=== PATIENT | female | born 1970 | race Caucasian/White ===

== ENCOUNTER 2017-04-03 16:44 | Emergency (ER) | payer MEDICAID ==
[2015-07-09 07:29] VITALS: BMI 35.5
[~2017-04-03 16:44] MED LIST: ABILIFY20 MG PO; ADIPEX-P37.5 MG PO; CELEXA40 MG PO; MOBIC7.5 MG PO; PRILOSEC20 MG PO; TRIAMTERENE-HCT1 TA1 PO; TYLENOL #4 W/CO1 TAB PO; XANAX1 MG PO
== END 2017-04-03 20:20 | disposition home or self-care (01) ==
LOC: D.ER 16:44
DX: M54.2 Cervicalgia (principal); V43.52XA Car driver injured in collision with other type car in traffic accident, initial encounter; Y93.89 Activity, other specified; Y92.410 Unspecified street and highway as the place of occurrence of the external cause; F31.89 Other bipolar disorder; I10 Essential (primary) hypertension

== ENCOUNTER → 2017-10-21 09:19 | Outpatient (CLI) | payer MEDICAID ==
[2015-07-09 07:29] VITALS: BMI 35.5
== END | disposition home or self-care (01) ==
LOC: D.MRI 09:19
DX: D49.6 Neoplasm of unspecified behavior of brain (principal)

== ENCOUNTER → 2019-04-27 09:29 | Outpatient (CLI) | payer MEDICAID ==
[2015-07-09 07:29] VITALS: BMI 35.5
[~2019-04-27 09:29] MED LIST changes: +ROBAXIN500 MG PO
== END | disposition home or self-care (01) ==
LOC: D.HCCARDIO 09:29
PROVIDERS: ATTEND Internal Medicine Cardiovascular Disease
DX: I20.9 Angina pectoris, unspecified (principal)

== ENCOUNTER 2019-04-30 10:17 | Observation (INO) | payer MEDICAID ==
[~2019-04-30] VITALS: Ht 157.5 cm; Wt 82.0 kg
--- NOTE | ~2019-04-30 | HEMODYNAMI ---
PATIENT:EDD SLOAN MEDICAL RECORD: [id number] : 74 LOCATION:[place] [address] ADMISSION DATE: 04/30/19 Generatedon:05/02/20199:26 Patient name: EDD SLOAN Patient #: [id number] SSN: : 1970 Date of study: 05/02/2019 Page: Of Hemodynamic Procedure Report Patient Data Patient Demographics Procedure consent was obtained First Name: EDD Gender: Female Last Name: NATHALIA : 1970 Middle Initial: M Age: 49 year(s) Patient #: [id number] Race: Unknown Additional ID: [id number] Contact details Address: [address] [place] [address] State: [place] City: [place] Zip code: [address] Past Medical History Allergies Allergen Reaction Date Comments Reported Other allergy 05/02/2019 SULFA, CLINDAMYCIN Admission Admission Data Admission Date: 04/30/2019 Admission Time: 12:30 Room #: [facility] Height (in.): 62 BSA: 1.83 (m2) Height (cm.): 157.48 BMI: 33.06 (kg/m2) Weight (lbs.): 180.78 Weight (kg.): 82 Lab Results Lab Result Date: 05/02/2019 Lab Result Time: 0:00 Biochemistry Name Units Result Min Max BUN mg/dl 14 --(--*-)-- 7 18 Creatinine mg/dl 0.6 --(*---)-- 0.6 1.3 eGFR ml/min 90 --(*---)-- 90 120 NONAFRICAN CBC Name Units Result Min Max Hematocrit % 37 *-(----)-- 42 54 Hemoglobin g/dl 12.6 -*(----)-- 13.5 17.5 Procedure Procedure Types Cath Procedure Diagnostic Procedure LHC [facility] w/Coronaries Sedation Charges Moderate Sedation up to 15 minutes Procedure Description Procedure Date Procedure Date: 05/02/2019 Procedure Start Time: 9:03 Procedure End Time: 9:24 Procedure Staff Name Function Chevy Ordonez MD Performing Physician Julianna Gómez RT Monitor Cecelia Heladio RT Scrub Bonnie Martínez RN Nurse Procedure Data Cath Procedure Fluoroscopy Diagnostic fluoroscopy Total fluoroscopy Time: 1.4 time: 1.4 min min Diagnostic fluoroscopy Total fluoroscopy dose: 346 dose: 346 mGy mGy Contrast Material Contrast Material Type Amount (ml) Isovue 300 62 Entry Location Entry Primary Successful Side Size Upsize Upsize Entry Closure Succes sful Closure Location (Fr) 1 (Fr) 2 (Fr) Remarks Device Remarks Femoral Right 5 Fr Exoseal artery Estimated blood loss: 5 ml Procedure Complications No complications Procedure Medications Medication Administration Route Dosage 0.9% NaCl I.V. 100 ml/hr Oxygen etCO2 Nasal cannula 2 l/min Lidocaine 2% added to field 20 Heparin Flush Bag added to field 2 bags (1000units/500ml NS) Radial Cocktail added to field 1 syringe (Verapamil 2mg/Nitro 400mcg/Heparin 1500units) Versed I.V. 2 mg Fentanyl I.V. 100 mcg Versed I.V. 2 mg Hemodynamics Rest BSA: 1.83 (m2) O2 Consumption: Estimated: 175.99 (ml/min) O2 Consumption indexed : Estimated:96.17 (ml/min/m) Heart Rate: 63 (bpm) Pressure Samples Time Site Value (mmHg) Purpose Heart Use Rate(bpm) 9:18 LV 101/3,22 Snapshot 70 9:19 AO 95/55(75) Pullback 71 9:19 LV 106/4,25 Pullback 71 Gradients Valve Time Site 1 Site 2 Mean SEP/DFP Peak To Heart Use (mmHg) (sec/min) Peak Rate (mmHg) (bpm) Aortic 9:19 LV AO 10 21 11 71 106/4,25 95/55(75) Calculations Valve P-P Mean Valve Index Valve Source Name Gradient Area Flow (cm2) Aortic 11 10 11 10 Snapshots Pre Cath Intra NCS Post Cath Vital Signs Time Heart Resp SPO2 etCO2 NIBP (mmHg) Rhythm Pain Sedation Rate (ipm) (%) (mmHg) Status Level (bpm) 8:54:10 66 22 100 44 145/94(110) NSR 0 (11) 10(A) , No pain 8:58:26 64 17 100 44 129/82(103) NSR 0 (11) 10(A) , No pain 9:02:44 65 14 99 16.5 97/63(83) NSR 0 (11) 10(A) , No pain 9:06:56 62 12 97 22.5 109/65(92) NSR 0 (11) 10(A) , No pain 9:11:08 66 13 99 42.1 124/78(88) NSR 0 (11) 9(A) , No pain 9:15:21 67 15 99 33 119/68(94) NSR 0 (11) 9(A) , No pain 9:19:36 69 12 100 16.5 116/65(90) NSR 0 (11) 10(A) , No pain 9:23:45 65 14 100 30.8 105/70(92) NSR 0 (11) 10(A) , No pain Medications Time Medication Route Dose Verified Delivered Reason Notes Ef fectiveness by by 8:53:14 0.9% NaCl I.V. 100 Chevy Bonnie used for ml/hr José Luis Martínez manager technical sales 8:53:21 Oxygen etCO2 2 l/min Chevy Bonnie used for Nasal José Luis Martínez procedure cannula RN 8:53:26 Lidocaine 2% added 20ml Chevy Chevy for local to vial José Luis Ordonez MD anesthetic field 8:53:31 Heparin Flush added 2 bags Chevy Chevy used for Bag to José Luis Ordonez MD procedure (1000units/500ml field NS) 8:53:35 Radial Cocktail added 1 Chevy Chevy used for (Verapamil to syringe José Luis Ordonez MD procedure 2mg/Nitro field 400mcg/Heparin 1500units) 9:01:05 Versed I.V. 2 mg Chevy Bonnie for José Luis Martínez sedation RN 9:01:13 Fentanyl I.V. 100 mcg Chevy Bonnie for José Luis Martínez sedation RN 9:06:39 Versed I.V. 2 mg Chevy Bonnie for José Luis Martínez sedation skidder driver Log Time Note 8:29:09 Signed procedure consent form obtained from patient. 8:29:12 Procedure Status Urgent Heart Cath (IP). 8:29:14 Time tracking: Regular hours (M-F 7:00 - 5:00) 8:29:18 Plan of Care:Hemodynamics will remain stable., Cardiac rhythm will remain stable., Comfort level will be maintained., Respiratory function will remain adequate., Patient/ family verbilizes understanding of procedure., Procedure tolerated without complication., Recovers from procedure without complications.. 8:31:07 Patient allergic to Other allergySULFA, CLINDAMYCIN 8::36 Lab Result : BUN 14 mg/dl 8::36 Lab Result : Creatinine 0.6 mg/dl 8::36 Lab Result : eGFR NONAFRICAN 90 ml/min 8::36 Lab Result : Hematocrit 37 % 8::36 Lab Result : Hemoglobin 12.6 g/dl 8:32:16 Patient Weight : 180.78 lbs 8:32:18 Patient Height : 62 inches 8:40:06 Bonnie Martínez RN sent for patient. Start room use. 8:53:05 Vital chart was started 8:53:14 0.9% NaCl 100 ml/hr I.V. was administered by Bonnie Martínez RN; used for procedure; 8:53:21 Oxygen 2 l/min etCO2 Nasal cannula was administered by Bonnie Martínez RN; used for procedure; 8:53:26 Lidocaine 2% 20ml vial added to field was administered by Chevy Ordonez MD; for local anesthetic; 8:53:31 Heparin Flush Bag (1000units/500ml NS) 2 bags added to field was administered by Chevy Ordonez MD; used for procedure; 8:53:35 Radial Cocktail (Verapamil 2mg/Nitro 400mcg/Heparin 1500units) 1 syringe added to field was administered by Chevy Ordonez MD; used for procedure; 8:58:56 Patient received from Med II to CCL 1 Alert and oriented. Tansferred to table in Supine position. 8:58:57 Warm blankets applied, and inna hugger turned on for patient comfort. 8:58:58 Correct patient and procedure confirmed by team. 8:58:58 ECG and BP/O2 sat monitors applied to patient. 8:58:59 Baseline sample Acquired. 8:59:03 Rhythm: sinus rhythm 8:59:05 Full Disclosure recording started 8:59:10 H&P Date Dictated: 05/02/2019 New H&P dictated by physician.. 8:59:12 Pre-procedure instructions explained to patient. 8:59:12 Pre-op teaching completed and patient verbalized understanding. 8:59:14 Family in patients room. 8:59:15 Patient NPO since Midnight. 8:59:19 Is the patient allergic to Iodine/contrast media? No. 8:59:22 Was the patient premedicated? No 8:59:25 Is patient on blood thinner?No 8:59:27 Patient diabetic? No. 8:59:29 Previous problem with sedation/anesthesia? No ? 8:59:31 Snore? Yes 8:59:32 Sleep apnea? No 8:59:33 Deviated septum? No 8:59:34 Opens mouth fully? Yes 8:59:35 Sticks out tongue? Yes 8:59:47 Airway obstruction? Yes ASTHMA 8:59:51 Dentures? No ? 8:59:57 Pre procedure: right dorsailis pedis pulse 1+ Palpable, but thready & weak; easily obliterated 8:59:59 Pre procedure: left dorsailis pedis pulse 1+ Palpable, but thready & weak; easily obliterated 9:00:06 Patient pain scale 0/10 ?. 9:00:18 IV patent on arrival in left forearm with 0.9% NaCl at [facility]. 9:00:22 Lab results completed and on chart. 9:00:26 Right Radial & Right Groin area was prepped with chlora-prep and draped in sterile fashion 9:00:27 Alarms reviewed by R. N. 9:00:28 Sharps counted by scrub and verified by R.N. 9:00:29 Physician arrived 9:00:29 --------ALL STOP TIME OUT------ 9:00:32 Right Radial & Right Groin site verified by team. 9:00:36 Fire Safety Assessment: A--An alcohol-based skin anteseptic being used preoperatively., C--Open oxygen or nitrous oxide is being used., D--An ESU, laser, or fiber-optic light is being used. 9:00:41 Physical assessment completed. ASA score P 2 - A patient with mild systemic disease as per Chevy Ordonez MD. 9:00:43 1) 90+ Normal kidney functon but urine findings or structural abnormalities or genetic trait point to kidney disease. 9:00:47 Maximum allowable contrast dose (3.7 X eGFR X 0.75)249 ml. 9:00:51 Sedation plan: IV Moderate Sedation Medication:Versed, Fentanyl 9:00:55 Use device set Radial Dx or PCI 9:00:56 ACIST Syringe (79178) opened to sterile field. 9:00:57 Medline Cath Pack ([id number]) opened to sterile field. 9:00:57 Bag Decanter (2002S) opened to sterile field. 9:00:58 ACIST Hand Control (92857) opened to sterile field. 9:00:58 ACIST Manifold (60070) opened to sterile field. 9:00:59 Tegaderm 4 x 4 (1626W) opened to sterile field. 9:01:05 Versed 2 mg I.V. was administered by Bonnie Martínez RN; for sedation; 9:01:05 EMERALD Guide Wire (170-253) opened to sterile field. 9:01:08 MBrace Wrist Support ([id number]) opened to sterile field. 9:01:13 Fentanyl 100 mcg I.V. was administered by Bonnie Martínez RN; for sedation; 9:02:08 Procedure started. 9:03:49 Local anesthetic to right radial artery with Lidocaine 2% by Chevy Ordonez MD.INITIAL ACCESS ONLY 9:06:39 Versed 2 mg I.V. was administered by Bonnie Martínez RN; for sedation; 9:10:46 unable to gain radial access 9:10:52 Local anesthetic to right femoral artery with Lidocaine 2% by Chevy Ordonez MD.ADDITIONAL ACCESS 9:11:01 SHEATH 5FR Whitetop (KZW325) opened to sterile field. 9:13:34 A 5 Fr sheath was inserted into the Right Femoral artery 9:13:46 Zero performed for pressure channel P1 9:14:07 DIAGNOSTIC Multipack 5Fr catheter set ([id number]) opened to sterile field. 9:14:16 5 Fr jl 4 guide catheter was inserted over the wire 9:15:16 LCA angiography performed. 9:15:23 Injector settings: Ml/sec: 3, Volume: 6, 9:15:57 Catheter removed. 9:16:14 5 Fr 3drc guide catheter was inserted over the wire 9:17:23 RCA angiography performed. 9:17:27 Injector settings: Ml/sec: 3, Volume: 6, 9:17:55 Catheter removed. 9:18:05 5 Fr pigtail guide catheter was inserted over the wire 9:19:06 LV hemodynamics recorded. 9:19:07 LV gram done using FLORES 9:19:10 Injector settings: Ml/sec: 5, Volume: 15, 9:19:33 EF : 60 % 9:19:50 Aortic Root visualized 9:19:54 Catheter removed. 9:20:00 ACCDominant side:Co-Dominant 9:20:07 EXOSEAL 5Fr (EX500) opened to sterile field. 9:20:19 Sheath removed intact; hemostasis achieved with Exoseal to the Right Femoral artery. 9:20:21 Procedure ended.(Physican Out) 9:20:59 Fluoroscopy time 01.40 minutes. 9:21:04 Flurop Dose total: 346 9:21:04 Fluoroscopy dose: 346 mGy 9:21:12 Dose Area Product 47263 mGy/cm. 9:21:17 Contrast amount:Isovue 300 62ml. 9:21:20 Sharps counted by scrub and verified by R.N. 9:21:49 Insertion/operative site no bleeding no hematoma. 9:21:52 Post-op/insertion site Right Femoral artery dressed using a 4 x 4 and Tegaderm. 9:21:54 Post Procedure Pulses reassessed and unchanged 9:21:58 Post procedure rhythm: unchanged. 9:22:01 Estimated blood loss: 5 ml 9:22:03 Post procedure instruction explained to patient.Patient verbalizes understanding. 9:22:03 Patient needs reinforcement of post procedure teaching. 9:24:04 Procedure type changed to Cath procedure, Diagnostic procedure, LHC, LHC w/Coronaries, Sedation Charges, Moderate Sedation up to 15 minutes 9:24:06 Procedure and supply charges have been captured, reviewed, submitted and are correct. 9:24:10 Procedure Complication : No complications 9:24:13 Vital chart was stopped 9:24:13 See physician's report for complete and final results. 9:24:18 Report given to [facility]. 9:24:21 Patient transfered to [facility] with Stretcher. 9:24:23 Procedure ended. 9:24:23 Full Disclosure recording stopped 9:24:35 End room use (Document Last) Device Usage Item Name Manufacture Quantity Catalog Hospital Part Current Minimal Lot# / Number Charge Number Stock Stock Serial# Code ACIST Acist 1 88126 773294 313608 149991 20 Syringe Medical (67792) Systems Inc Medline Medline 1 [id number] 417766 59779 509018 5 Cath Pack ([id number]) Bag Microtek 1 2001S 606779 40596 919536 5 Decanter Medical Inc. () ACIST Hand Acist 1 72185 377030 756127 537460 5 Control Medical (88858) Systems Inc ACIST Acist 1 51122 880685 363933 371540 5 Manifold Medical (27951) Systems Inc Tegaderm 4 3M 1 1626W 237881 107309 579723 5 x 4 (1626W) EMERALD Cardinal 1 480-770 875781 346748 483815 5 Guide Wire Health (117-253) race Advanced 1 140-0250-00 025417 46044 314179 5 Wrist Vascular Support Dynamics ([id number]) SHEATH 5FR Terumo 1 RFA424 144028 660842 208134 5 Whitetop (YDC286) DIAGNOSTIC Cardinal 1 DZ7067 573485 01106 916330 30 37coins 5Fr catheter set (GX6732) EXOSEAL 5Fr Cardinal 1 EX500 997986 953456 843688 10 (EX500) Health Signature Audit [place] Stage Time Signature Unsigned Intra-Procedure 05/02/2019 Julianna Gómez 9:26:13 AM RT(R) Signatures Performing Physician : Signature : Chevy Ordonez MD Date : Time : Monitor : Julianna Gómez RT Signature : Date : Time : Nurse : Bonnie Martínez RN Signature : Date : Time : [place] [address] [place] [address]
[~2019-04-30 10:17] MED LIST changes: -ROBAXIN500 MG PO
[2019-04-30] MEDS ORDERED: ROBAXIN500 MG PO (10:29)
[2019-04-30 10:46] LABS: BASOPHILS 0.1 % (0-2); EOSINOPHILS 4.2 % (0-7); HEMATOCRIT 39.8 % (36.0-48.0); LYMPHOCYTES 26.8 % (15-50); MCH 33.3 pg (26.0-34.0); MCHC 35.2 g/dL (31.0-37.0); MCV 94.8 fL (80.0-100.0); MEAN PLATELET VOLUME 11.3 fL (7.4-10.4); MONOCYTES 4.1 % (2-11); NEUTROPHILS 64.8 % (40-80); PLATELET COUNT 244 10x3/uL (130-400); RDW 12.6 % (11.5-14.5); WBC 7.6 10x3/uL (4.8-10.8)
[2019-04-30 11:02] LABS: ALBUMIN 3.7 g/dL (3.4-5.0); ALKALINE PHOSPHATASE 60 U/L (46-116); ALT (SGPT) 21 U/L (10-68); BILIRUBIN - TOTAL 0.46 mg/dL (0.2-1.3); CALC OSMOLALITY 280 mosm/kg (275-300); CALCIUM 9.1 mg/dL (8.5-10.1); CARBON DIOXIDE 26.3 mmol/L (21.0-32.0); CHLORIDE - SERUM 106 mmol/L (98-107); CREATININE - SERUM 0.8 mg/dL (0.6-1.3); GLUCOSE 92 mg/dL (74-106); POTASSIUM - SERUM 3.6 mmol/L (3.5-5.1); SODIUM 141 mmol/L (136-145); UREA NITROGEN 13 mg/dL (7-18); eGFR NON AFRICAN AMERICAN 81 mL/min (90-120)
[2019-04-30 11:09] LABS: LIPASE 57 U/L (73-393); PRO BNP 58 pg/mL (0-125)
[2019-04-30 11:10] LABS: TROPONIN-I < 0.017 ng/mL (0.000-0.060)
[2019-04-30 11:30] VITALS: BP 110/62
--- NOTE | 2019-04-30 11:35 | NUR ---
DR. DUMONT IN TO SEE PT.
[2019-04-30 12:14] VITALS: BP 109/49
--- NOTE | 2019-04-30 12:18 | NUR ---
ATTEMPT TO CALL REPORT, INFORMED ROOM IS DIRTY
--- NOTE | 2019-04-30 13:05 | NUR ---
ATTEMPTING TO CALL REPORT,
--- NOTE | 2019-04-30 13:30 | NUR ---
TRANSFERED FROM ER BY W/Stef ONEIL TO ROOM. CALL LIGHT IN REACH. WILL CONT. PLAN OF CARE.
[2019-04-30 13:33] VITALS: BP 114/65; BMI 33.0
[2019-04-30 14:29] VITALS: Ht 157.5 cm; Wt 82.0 kg
--- NOTE | 2019-04-30 16:21 | NUR ---
MESSAGE LEFT TO DR. TRACY, ELEVATED D-DIMER.
[2019-04-30 16:27] LABS: CKMB 0.3 U/L (0.0-3.6); CREATINE KINASE 55 UL (21-215)
[2019-04-30 16:28] LABS: TROPONIN-I < 0.017 ng/mL (0.000-0.060)
[2019-04-30 17:47] VITALS: BP 99/62
[2019-04-30 19:03] LABS: APPEARANCE CLEAR (CLEAR); BILIRUBIN NEGATIVE (NEGATIVE); COLOR YELLOW (YELLOW); GLUCOSE NEGATIVE (NEGATIVE); KETONE NEGATIVE (NEGATIVE); NITRITE NEGATIVE (NEGATIVE); PROTEIN NEGATIVE (NEGATIVE); UROBILINOGEN NORMAL (NORMAL)
[2019-04-30 19:22] LABS: UDS - AMPHET NEGATIVE QUAL (NEGATIVE); UDS - BARB NEGATIVE QUAL (NEGATIVE); UDS - BENZO NEGATIVE QUAL (NEGATIVE); UDS - COCAINE NEGATIVE QUAL (NEGATIVE); UDS - OPIATE POSITIVE QUAL (NEGATIVE); UDS - PCP NEGATIVE QUAL (NEGATIVE); UDS - THC NEGATIVE QUAL (NEGATIVE)
--- NOTE | 2019-04-30 19:50 | NUR ---
BEDSIDE REPORT RECIEVED. PT RESTING IN BED WITH NONLABORED RESPIRATIONS. AT BEDSIDE. CALL LIGHT IN REACH. CPOC.
[2019-04-30 20:00] VITALS: BP 114/56
--- NOTE | 2019-04-30 20:00 | NUR ---
ASSESSMENT COMPLETED. PT C/O DULL HEADACHE. WILL HOLD NEXT SCHEDULED NITRO PASTE AND PROVIDE PAIN MEDICATION. CPOC.
--- NOTE | 2019-04-30 20:32 | NUR ---
IV DILAUDID GIVEN FOR PAIN/HEADACHE.
[2019-04-30 22:24] LABS: CKMB 0.5 U/L (0.0-3.6); CREATINE KINASE 53 UL (21-215); TROPONIN-I 0.022 ng/mL (0.000-0.060)
[2019-05-01] VITALS: BP 125/66
[2019-05-01 02:13] LABS: BASOPHILS 0.1 % (0-2); EOSINOPHILS 7.9 % (0-7); HEMOGLOBIN 13.1 g/dL (12-16); IMMATURE GRANULOCYTES 0.1 % (0-5); LYMPHOCYTES 38.3 % (15-50); MCH 32.8 pg (26.0-34.0); MCHC 34.5 g/dL (31.0-37.0); MCV 95.2 fL (80.0-100.0); MONOCYTES 5.3 % (2-11); NEUTROPHILS 48.3 % (40-80); PLATELET COUNT 235 10x3/uL (130-400); RBC 3.99 10x6/uL (4.00-5.40); RDW 12.7 % (11.5-14.5); WBC 7.6 10x3/uL (4.8-10.8)
[2019-05-01 02:37] LABS: CALC OSMOLALITY 287 mosm/kg (275-300); CALCIUM 8.5 mg/dL (8.5-10.1); CARBON DIOXIDE 30.2 mmol/L (21.0-32.0); CHLORIDE - SERUM 106 mmol/L (98-107); CKMB 0.5 U/L (0.0-3.6); CREATINE KINASE 50 UL (21-215); CREATININE - SERUM 0.7 mg/dL (0.6-1.3); GLUCOSE 103 mg/dL (74-106); POTASSIUM - SERUM 3.7 mmol/L (3.5-5.1); SODIUM 144 mmol/L (136-145); UREA NITROGEN 16 mg/dL (7-18); eGFR NON AFRICAN AMERICAN > 90 mL/min (90-120)
[2019-05-01 04:00] VITALS: BP 106/62
[2019-05-01 08:00] VITALS: BP 103/63
[2019-05-01 08:59] LABS: CALC OSMOLALITY 288 mosm/kg (275-300); CARBON DIOXIDE 30.5 mmol/L (21.0-32.0); CHLORIDE - SERUM 105 mmol/L (98-107); CREATININE - SERUM 0.7 mg/dL (0.6-1.3); GLUCOSE 122 mg/dL (74-106); POTASSIUM - SERUM 3.5 mmol/L (3.5-5.1); SODIUM 144 mmol/L (136-145); UREA NITROGEN 14 mg/dL (7-18); eGFR NON AFRICAN AMERICAN > 90 mL/min (90-120)
[2019-05-01 12:30] VITALS: BP 106/61
[2019-05-01 16:30] VITALS: BP 111/61
[2019-05-01 20:00] VITALS: BP 106/67
--- NOTE | 2019-05-01 20:00 | NUR ---
INITIAL ROUNDS AND ASSESSMENT COMPLETED. PT RESTING IN BED. CALL LIGHT IN REACH. CPOC.
[2019-05-02 00:18] VITALS: BP 92/58
--- NOTE | 2019-05-02 04:30 | NUR ---
C/O CHEST PAIN, MEDICATED WITH DILAUDID 1MG SIVP FOR PAIN 04/09. PT NPO FOR AM HEART CATH.
[2019-05-02 05:35] LABS: BASOPHILS 0.3 % (0-2); EOSINOPHILS 6.9 % (0-7); HEMOGLOBIN 12.6 g/dL (12-16); IMMATURE GRANULOCYTES 0.1 % (0-5); LYMPHOCYTES 31.5 % (15-50); MCH 32.6 pg (26.0-34.0); MCHC 34.1 g/dL (31.0-37.0); MCV 95.6 fL (80.0-100.0); MEAN PLATELET VOLUME 11.5 fL (7.4-10.4); NEUTROPHILS 57.2 % (40-80); PLATELET COUNT 238 10x3/uL (130-400); RBC 3.87 10x6/uL (4.00-5.40); RDW 12.7 % (11.5-14.5); WBC 7.9 10x3/uL (4.8-10.8)
[2019-05-02 05:57] LABS: CALC OSMOLALITY 280 mosm/kg (275-300); CALCIUM 8.6 mg/dL (8.5-10.1); CARBON DIOXIDE 28.5 mmol/L (21.0-32.0); CHLORIDE - SERUM 105 mmol/L (98-107); CREATININE - SERUM 0.6 mg/dL (0.6-1.3); GLUCOSE 88 mg/dL (74-106); SODIUM 141 mmol/L (136-145); UREA NITROGEN 14 mg/dL (7-18); eGFR NON AFRICAN AMERICAN > 90 mL/min (90-120)
[2019-05-02 06:25] VITALS: BP 117/65
--- NOTE | 2019-05-02 08:04 | NUR ---
ASSESSMENT DONE. DENIES NEEDS
[2019-05-02 08:43] VITALS: BP 103/56
[2019-05-02 13:28] VITALS: BP 101/47
--- NOTE | 2019-05-02 17:02 | NUR ---
WITHOUT CHANGES OR DISTRESS NOTED AT THIS TIME. DENIES NEEDS
[2019-05-02 17:15] VITALS: BP 100/52
--- NOTE | 2019-05-02 17:19 | NUR ---
I have reviewed this patient and I concur with the Shift Assessment completed by the Licensed Practical Nurse today this shift.
--- NOTE | 2019-05-02 19:23 | NUR ---
BEDSIDE REPORT RECEIVED. PATIENT IS ALERT AND ORIENTED RESTING COMFORTABLY IN BED. RESPIRATIONS ARE EVEN AND UNLABORED. NO S/S OF DISTRESS. NO C/O PAIN. PATIENT REFUSING TO WEAR WAFER MOUNTER. PATIENT EDUCATED TO THE IMPORTANCE OF HER WEARING THE MONITOR. PATIENT CONTINUES TO REFUSE. NEEDS MET. CALL LIGHT WITHIN REACH. WILL CPOC.
[2019-05-02 20:00] VITALS: BP 99/52
[2019-05-03 00:01] VITALS: BP 96/50
[2019-05-03 04:00] VITALS: BP 91/53
[2019-05-03 06:41] LABS: CALC OSMOLALITY 293 mosm/kg (275-300); CALCIUM 8.7 mg/dL (8.5-10.1); CHLORIDE - SERUM 109 mmol/L (98-107); CREATININE - SERUM 0.7 mg/dL (0.6-1.3); GLUCOSE 102 mg/dL (74-106); POTASSIUM - SERUM 3.7 mmol/L (3.5-5.1); SODIUM 147 mmol/L (136-145); UREA NITROGEN 17 mg/dL (7-18); eGFR NON AFRICAN AMERICAN > 90 mL/min (90-120)
[2019-05-03 06:53] LABS: BASOPHILS 0.2 % (0-2); EOSINOPHILS 8.2 % (0-7); HEMATOCRIT 35.2 % (36.0-48.0); HEMOGLOBIN 11.8 g/dL (12-16); IMMATURE GRANULOCYTES 0.2 % (0-5); LYMPHOCYTES 31.5 % (15-50); MCH 32.4 pg (26.0-34.0); MCHC 33.5 g/dL (31.0-37.0); MCV 96.7 fL (80.0-100.0); MEAN PLATELET VOLUME 11.4 fL (7.4-10.4); MONOCYTES 5.1 % (2-11); NEUTROPHILS 54.8 % (40-80); PLATELET COUNT 198 10x3/uL (130-400); RBC 3.64 10x6/uL (4.00-5.40); RDW 12.8 % (11.5-14.5); WBC 6.5 10x3/uL (4.8-10.8)
--- NOTE | 2019-05-03 07:10 | NUR ---
ASSESSMENT DONE. ADEN NEEDS
[2019-05-03 08:00] VITALS: BP 118/75
[2019-05-03 12:00] VITALS: BP 103/56
[2019-05-03 15:04] VITALS: BP 111/53
--- NOTE | 2019-05-03 17:19 | NUR ---
DC GIVEN TO PT
--- NOTE | 2019-05-03 17:41 | NUR ---
DC GIVEN TO PT. DC HOME PER PERSONAL CAR
--- NOTE | 2019-05-04 07:47 | MORECARE ---
CASE MANAGEMENT DISCHARGE SUMMARY PATIENT: EDD SLOAN UNIT: [id number] ADM DATE: 04/30/19 AGE: 49 : 74 SEX: F ROOM/BED: D.1634 AUTHOR: BRISSA MARIO PHYSICIAN: REFERRING PHYSICIAN: SHAWN TRACY MD DATE OF SERVICE: 05/04/19 Discharge Plan Patient Name: EDD SLOAN Facility: [facility]:[place] : 1970 Planned Disposition: Home Anticipated Discharge Date: 05/03/19 Discharge Date: 05/03/2019 Expected LOS: 3 Initial Reviewer: [email or web address] Initial Review Date: 05/04/2019 Generated: 05/04/19 8:47 am Patient Name: EDD SLOAN Page 51466 at 0747 All edits/amendments must be made on the electronic document DICTATION DATE: 05/04/1945 DUCK OPERATOR: GINA 05/04/19 0747 RPT#: [id number] DC DATE:05/03/19 STATUS: DIS IN [facility] [address] [place] [address] END OF REPORT
== END 2019-05-03 17:42 | disposition home or self-care (01) ==
LOC: D.ER 10:17 → OBSVTIME 12:30 → D.M2 12:30
PROVIDERS: Family Medicine; Internal Medicine Cardiovascular Disease; ADMIT Internal Medicine Nephrology; ATTEND Internal Medicine Nephrology
DX: I25.110 Atherosclerotic heart disease of native coronary artery with unstable angina pectoris (principal); J45.909 Unspecified asthma, uncomplicated; F17.203 Nicotine dependence unspecified, with withdrawal; G89.29 Other chronic pain

== ENCOUNTER 2019-09-08 09:56 | Emergency (ER) | payer MEDICAID ==
[~2019-09-08] VITALS: Ht 160 cm; Wt 82.3 kg
[~2019-09-08 09:56] MED LIST changes: +ROBAXIN500 MG PO
[2019-09-08 10:07] VITALS: Ht 160 cm; Wt 82.3 kg
[2019-09-08 14:25] VITALS: BP 129/80
== END 2019-09-08 14:25 | disposition home or self-care (01) ==
LOC: D.ER 09:56
DX: T78.1XXA Other adverse food reactions, not elsewhere classified, initial encounter (principal); J45.909 Unspecified asthma, uncomplicated; Z72.0 Tobacco use

== ENCOUNTER → 2020-05-01 09:07 | Outpatient (CLI) | payer MEDICAID ==
[2019-09-08 10:07] VITALS: BMI 32.1
[2020-05-01 11:14] LABS: ALBUMIN 3.6 g/dL (3.4-5.0); BILIRUBIN - INDIRECT 0.15 mg/dL (0.00-1.00); BILIRUBIN - TOTAL 0.19 mg/dL (0.2-1.3); PROTEIN - SERUM 7.2 g/dL (6.4-8.2)
[2020-05-01 11:15] LABS: BILIRUBIN - DIRECT 0.04 mg/dL (0.00-0.30)
== END | disposition home or self-care (01) ==
LOC: D.US 09:00
PROVIDERS: ATTEND Internal Medicine Gastroenterology
DX: K76.0 Fatty (change of) liver, not elsewhere classified (principal)

== ENCOUNTER → 2020-10-31 10:14 | Outpatient (CLI) | payer MEDICAID ==
[2019-09-08 10:07] VITALS: BMI 32.1
[2020-10-31 11:03] LABS: ALBUMIN 3.6 g/dL (3.4-5.0); BILIRUBIN - DIRECT 0.06 mg/dL (0.00-0.30); BILIRUBIN - INDIRECT 0.16 mg/dL (0.00-1.00); BILIRUBIN - TOTAL 0.22 mg/dL (0.2-1.3)
== END | disposition home or self-care (01) ==
LOC: D.LAB 08:15 → D.US 10:30
PROVIDERS: ATTEND Internal Medicine Gastroenterology
DX: K76.0 Fatty (change of) liver, not elsewhere classified (principal)

== ENCOUNTER 2020-11-11 19:36 | Emergency (ER) | payer BC ==
[~2020-11-11] VITALS: Ht 160 cm; Wt 90.9 kg
[2020-11-11 19:42] VITALS: BP 144/78; Ht 160 cm; Wt 90.9 kg
[2020-11-11] MEDS ORDERED: CELEXA20 MG PO (19:44)
[2020-11-11] MEDS ORDERED: CYCLOBENZAPRINE10 MG PO (19:45)
[2020-11-11] MEDS ORDERED: METHOCARBAMOL500 MG PO (21:17)
[2020-11-11] MEDS ORDERED: TORADOL10 MG PO (21:17)
== END 2020-11-11 21:29 | disposition home or self-care (01) ==
LOC: D.ER 19:36
DX: S39.012A Strain of muscle, fascia and tendon of lower back, initial encounter (principal); J45.909 Unspecified asthma, uncomplicated; X50.1XXA Overexertion from prolonged static or awkward postures, initial encounter; Y93.9 Activity, unspecified; Y92.9 Unspecified place or not applicable

== ENCOUNTER 2020-11-13 05:29 | Day surgery (SDC) | payer BC ==
[~2020-11-13] VITALS: Ht 160 cm; Wt 90.9 kg
[~2020-11-13 05:29] MED LIST changes: +CELEXA20 MG PO; +CYCLOBENZAPRINE10 MG PO; +METHOCARBAMOL500 MG PO; +TORADOL10 MG PO
[2020-11-13 05:53] LABS: BASOPHILS 0.2 % (0-2); EOSINOPHILS 1.8 % (0-7); HEMATOCRIT 38.8 % (36.0-48.0); HEMOGLOBIN 13.1 g/dL (12-16); IMMATURE GRANULOCYTES 0.2 % (0-5); LYMPHOCYTE ABS# 3.33 10x3/uL (1.18-3.74); LYMPHOCYTES 34.9 % (15-50); MCH 32.3 pg (26.0-34.0); MCHC 33.8 g/dL (31.0-37.0); MCV 95.8 fL (80.0-100.0); MONOCYTES 7.2 % (2-11); NEUTROPHIL ABS# 5.32 10x3/uL (1.56-6.13); NEUTROPHILS 55.7 % (40-80); RBC 4.05 10x6/uL (4.00-5.40); RDW 12.7 % (11.5-14.5); WBC 9.6 10x3/uL (4.8-10.8)
[2020-11-13 06:22] LABS: PLATELET COUNT 275 10x3/uL (130-400)
[2020-11-13 06:28] LABS: HCG SERUM NEGATIVE (NEGATIVE)
[2020-11-13 06:35] LABS: ALBUMIN 3.4 g/dL (3.4-5.0); ALKALINE PHOSPHATASE 87 U/L (30-120); ALT (SGPT) 42 U/L (10-68); BILIRUBIN - TOTAL 0.13 mg/dL (0.2-1.3); CALC OSMOLALITY 283 mosm/kg (275-300); CALCIUM 8.9 mg/dL (8.5-10.1); CARBON DIOXIDE 29.4 mmol/L (21.0-32.0); CHLORIDE - SERUM 106 mmol/L (98-107); CREATININE - SERUM 0.7 mg/dL (0.6-1.3); GLUCOSE 116 mg/dL (74-106); PROTEIN - SERUM 6.5 g/dL (6.4-8.2); SODIUM 140 mmol/L (136-145); UREA NITROGEN 23 mg/dL (7-18); eGFR NON AFRICAN AMERICAN > 90 mL/min (90-120)
[2020-11-13 06:39] VITALS: BP 102/75; Ht 160 cm; Wt 90.9 kg
[2020-11-13 06:40] LABS: POTASSIUM - SERUM 2.9 mmol/L (3.5-5.1)
[2020-11-13] MEDS ORDERED: HYDROCHLOROTHIA25 MG PO (06:45)
[2020-11-13] MEDS ORDERED: FAMOTIDINE10 MG (06:46)
[2020-11-13] MEDS ORDERED: PREVACID30 MG PO (06:46)
[2020-11-13] MEDS ORDERED: ESTRACE 0.5 MG0.5 MG PO (06:47)
--- NOTE | 2020-11-13 07:16 | NUR ---
0635 RECEIVED K+ 2.9 VALUE FROM ZEB JUNIOR RN. REPORTED THIS LAB RESULT TO ORIANA IVORY CRNA. NO ORDERS RECEIVED TO TREAT K+.
--- NOTE | 2020-11-13 09:07 | NUR ---
0900 IV DC'ED WITH CATH INTACT. KELLY. Alisha BROWNING R.N.
--- NOTE | 2020-11-13 09:13 | NUR ---
0910 DRESSED, AWAKE & ALERT. GIVEN POST ENDOSCOPY D/C INSTRUCTIONS & MED REC. PT VOICED UNDERSTANDING. TO PRIVATE CAR PER WHEELCHAIR BY STAFF. HOME WITH BOONE SLOAN. Alisha BROWNING R.N.
--- NOTE | 2020-11-14 11:28 | OP ---
PATIENT NAME: EDD SLOAN MEDICAL RECORD: [id number] :74 [facility] AD[facility] DATE: SURGEON: MATT DE LEON MD DATE OF OPERATION: 11/13/2020 PREOPERATIVE DIAGNOSES: 1. Gastroesophageal reflux disease. 2. Jackhammer esophagus. 3. Asthma. POSTOPERATIVE DIAGNOSES: 1. Gastroesophageal reflux disease. 2. Jackhammer esophagus. 3. Asthma. PROCEDURE: Upper endoscopy with Gibson pH monitor placement. SURGEON: Matt De Leon MD DESCRIPTION OF PROCEDURE: The Olympus endoscope was advanced through the mouth, down the esophagus and found that the GE junction rested at 36 cm from the teeth. We pulled the scope back and inserted the Gibson pH monitor. This was suctioned to the side of the esophagus at about 33 cm from the teeth. After it was deployed, we went back down with the scope and could see that the device was in good position in the lower third of the esophagus. The scope was then removed. COMPLICATIONS: None. CONDITION: Stable. ANESTHESIA: TIVA. BLOOD LOSS: None. TRANSINT:[id number] Voice Confirmation ID: [id number] DOCUMENT ID: [id number] MATT DE LEON MD at 1128 CC: MARYJANE CHOE [id number] DICTATION DATE: 11/13/20819 [employer] SPECIALIST: 11/13/20 1350 [facility] 11/13/20 [facility] [address] [place] [address]
== END 2020-11-13 09:10 | disposition home or self-care (01) ==
LOC: D.OPS 05:29
PROVIDERS: Anesthesiology; ATTEND Surgery
DX: K21.00 Gastro-esophageal reflux disease with esophagitis, without bleeding (principal); J45.909 Unspecified asthma, uncomplicated; F17.200 Nicotine dependence, unspecified, uncomplicated; G89.29 Other chronic pain; K22.4 Dyskinesia of esophagus

== ENCOUNTER 2020-12-11 07:41 | Observation (INO) | payer MEDICAID ==
[2020-12-11] VITALS (7 sets, daily range): BP systolic 116–153; BP diastolic 73–89; Ht 160 cm; Wt 96.8 kg
[~2020-12-11] VITALS: Ht 160 cm; Wt 96.8 kg
--- NOTE | ~2020-12-11 | OP ---
PATIENT NAME: EDD SLOAN MEDICAL RECORD: [id number] :74 LOCATION:[facility] ADMISSION DATE:12/11/20 SURGEON: MATT DE LEON MD DATE OF OPERATION: 12/11/2020 PREOPERATIVE DIAGNOSES: 1. Gastroesophageal reflux disease with hiatal hernia. 2. Tobacco dependence syndrome. 3. Jackhammer esophagus. POSTOPERATIVE DIAGNOSES: 1. Gastroesophageal reflux disease with hiatal hernia. 2. Tobacco dependence syndrome. 3. Jackhammer esophagus. PROCEDURE: Laparoscopic Reyes with hiatal hernia repair. SURGEON: Matt De Leon MD DESCRIPTION OF PROCEDURE: The patient's abdomen was prepped and draped in sterile fashion. A Veress needle was inserted in the left upper quadrant and the abdomen was insufflated. An 11-mm Visiport trocar was inserted in the midline just above the umbilicus. The Veress needle was visualized and there were no signs of any injury to bowel or surrounding structures. An 11-mm trocar was then placed in the left subcostal region and a 5-mm trocar was placed in the epigastrium. A 5-mm trocar was placed in the left lateral abdomen and a 5-mm trocar was placed in the right lateral abdomen. Liver retractor was inserted and the left lobe of the liver was elevated. The stomach was pulled down and we could see there was a small hiatal hernia present. We began our dissection on the lesser omentum and we took this down using Harmonic scalpel all the way up to the right side of the right garrison. The peritoneum was scored and we were able to penetrate into the thoracic cavity and took down the small hernia sac. We continued this dissection anteriorly and posteriorly. We then approached the greater curvature of the stomach and began taking down the short gastrics using Harmonic scalpel. This was done on the upper third of the stomach rounding the fundus to the left side of the right garrison. The esophagus was eventually dissected free and we had a 360-degree inspection of the distal esophagus and stomach. We then reapproximated the esophageal hiatus using interrupted 0 Polydek times 2. A posterior 360-degree Reyes wrap was performed with the fundus of the stomach around the distal esophagus. This was done using interrupted 0 Polydek times 3 with the top and the bottom suture incorporating a bite of the esophagus. The wrap did not appear to be too tight and everything appeared to be resting in good position. The area was irrigated out with normal saline and care was taken to assure there were no signs of any active bleeding. There was a little bit of ischemic changes to the superior tip of the spleen, but the remainder of the spleen appeared to be completely intact. The liver retractor was then removed. The 11-mm trocar site fascias were closed with 0 Vicryl using a Felton-Marci suture passer device. The ports and insufflation were then removed. The skin incisions were infused with 10 mL of 0.25% Marcaine with epinephrine and then closed with subcutaneous 5-0 Monocryl. COMPLICATIONS: None. CONDITION: Stable. OPERATIVE REPORT [id number] EDD SLOAN ANESTHESIA: General endotracheal and local. BLOOD LOSS: Minimal. TRANSINT:[id number] Voice Confirmation ID: [id number] DOCUMENT ID: [id number] MATT DE LEON MD CC: MARYJANE CHOE [id number] DICTATION DATE: 12/11/20 1312 CHEMICAL RECOVERY OPERATOR: 12/11/20 1711 ADM IN [place] [address] [place] [address]
[~2020-12-11 07:41] MED LIST changes: +ESTRACE 0.5 MG0.5 MG PO; +FAMOTIDINE10 MG; +HYDROCHLOROTHIA25 MG PO; +PEPCID40 MG PO; +PREVACID30 MG PO; +VENTOLIN HFA [SP8 GM INH
[2020-12-11 08:07] LABS: BASOPHILS 0.5 % (0-2); EOSINOPHILS 5.7 % (0-7); HEMATOCRIT 41.9 % (36.0-48.0); HEMOGLOBIN 14.1 g/dL (12-16); IMMATURE GRANULOCYTES 0.2 % (0-5); LYMPHOCYTE ABS# 2.68 10x3/uL (1.18-3.74); LYMPHOCYTES 31.6 % (15-50); MCH 32.6 pg (26.0-34.0); MCHC 33.7 g/dL (31.0-37.0); MEAN PLATELET VOLUME 11.3 fL (7.4-10.4); MONOCYTES 7.5 % (2-11); NEUTROPHIL ABS# 4.62 10x3/uL (1.56-6.13); NEUTROPHILS 54.5 % (40-80); PLATELET COUNT 258 10x3/uL (130-400); RBC 4.32 10x6/uL (4.00-5.40); RDW 12.3 % (11.5-14.5); WBC 8.5 10x3/uL (4.8-10.8)
[2020-12-11 08:13] LABS: CALC OSMOLALITY 279 mosm/kg (275-300); CALCIUM 9.5 mg/dL (8.5-10.1); CARBON DIOXIDE 29.2 mmol/L (21.0-32.0); CHLORIDE - SERUM 104 mmol/L (98-107); CREATININE - SERUM 0.8 mg/dL (0.6-1.3); GLUCOSE 96 mg/dL (74-106); POTASSIUM - SERUM 3.4 mmol/L (3.5-5.1); SODIUM 140 mmol/L (136-145); UREA NITROGEN 16 mg/dL (7-18); eGFR NON AFRICAN AMERICAN 81 mL/min (90-120)
--- NOTE | 2020-12-11 13:50 | NUR ---
PT STATES 7/10 PAIN AFTER 1 MG DILAUDED AND 25 OF DEM. PT RESTING COMFORTABLY WITH EYES CLOSED. NO GRIMACING OR GUARDING. VSS
--- NOTE | 2020-12-11 14:15 | NUR ---
RECEIVED PT FROM RECOVERY TO ROOM 2224 VIA BED. PT RESTING WITH EYES CLOSED, BUT AROUSES EASILY WITH NAME CALLED. RESP EVEN AND UNLABORED. O2 @ 2L NC IN PLACE. PT MOANS IF IN PAIN, THEN FALLS BACK TO SLEEP. LAP SITES X 5 TO ABDOMEN WITH BANDAIDS INTACT, C/D/I. IV TO RIGHT WRIST WITH LR @ 100 INFUSING VIA PUMP. SITE WITHOUT REDNESS OR EDEMA. AWAKENED TO ORIENT TO BED CONTROLS, CL AND ROOM. ENCOURAGED TO CALL WITH NEEDS. CL WITHIN REACH.
[2020-12-12] VITALS: BP 115/77
[2020-12-12 04:00] VITALS: BP 112/77
[2020-12-12 06:44] LABS: BASOPHILS 0.3 % (0-2); EOSINOPHILS 0.5 % (0-7); HEMATOCRIT 40.1 % (36.0-48.0); IMMATURE GRANULOCYTES 0.2 % (0-5); LYMPHOCYTE ABS# 2.28 10x3/uL (1.18-3.74); LYMPHOCYTES 21.3 % (15-50); MCH 32.5 pg (26.0-34.0); MCHC 32.4 g/dL (31.0-37.0); MEAN PLATELET VOLUME 11.8 fL (7.4-10.4); MONOCYTES 7.1 % (2-11); NEUTROPHIL ABS# 7.55 10x3/uL (1.56-6.13); NEUTROPHILS 70.6 % (40-80); PLATELET COUNT 293 10x3/uL (130-400); RDW 12.5 % (11.5-14.5)
[2020-12-12 06:51] LABS: CALC OSMOLALITY 284 mosm/kg (275-300); CALCIUM 8.9 mg/dL (8.5-10.1); CARBON DIOXIDE 28.7 mmol/L (21.0-32.0); CHLORIDE - SERUM 105 mmol/L (98-107); CREATININE - SERUM 0.8 mg/dL (0.6-1.3); GLUCOSE 97 mg/dL (74-106); POTASSIUM - SERUM 3.6 mmol/L (3.5-5.1); SODIUM 142 mmol/L (136-145); UREA NITROGEN 18 mg/dL (7-18); eGFR NON AFRICAN AMERICAN 81 mL/min (90-120)
[2020-12-12 06:53] LABS: MCV 100.3 fL (80.0-100.0); WBC 10.7 10x3/uL (4.8-10.8)
--- NOTE | 2020-12-12 07:15 | NUR ---
RESTING IN BED WITH EYES OPEN, ALERT AND ORIENTED. IV LOCATED TO RIGHT HAND CURRENTLY RUNNING NS @ 100, DILAUDID CHAIN LINK FENCE INSTALLER PRESENT. NO CURRENT S/S OF DISTRESS AT THIS TIME, DENIES CURRENT NEEDS, WILL CONT TO MONITOR.
[2020-12-12 08:56] VITALS: BP 127/75
[2020-12-12 12:59] VITALS: BP 133/73
[2020-12-12] MEDS ORDERED: HYDROCODON-ACE1 EA10 PO (13:29)
[2020-12-12] MEDS ORDERED: REGLAN10 MG PO (13:29)
--- NOTE | 2020-12-12 14:49 | NUR ---
PT DISCHARGED VIA WHEELCHAIR HOME WITH FAMILY. NO CONCERNS.
== END 2020-12-12 14:50 | disposition home or self-care (01) ==
LOC: D.OPS 07:41 → D.MS 14:15 → D.OPS 14:18 → D.MS 14:19 → OBSVTIME 14:19 → D.MS 12-12 14:50
PROVIDERS: ADMIT Surgery; ATTEND Surgery
DX: K21.9 Gastro-esophageal reflux disease without esophagitis (principal); K44.9 Diaphragmatic hernia without obstruction or gangrene; F17.200 Nicotine dependence, unspecified, uncomplicated